=== PATIENT | male | born 2000 | race Caucasian/White ===

== ENCOUNTER 2019-04-01 15:58 | Emergency (ER) | payer OTHER ==
[2019-04-01 16:15] VITALS: BP 139/85
--- NOTE | 2019-04-01 16:44 | UC ---
Complaint Male HPI - HPI Summary HPI Summary: 19 yo male with dysuria Monday after masturbating. His urine looked cloudy once no urethral d/c ? mild testicular discomfort has had sex once in past year (2 months ago) no f/c no back pain no n/v/d - History of Current Complaint Chief Complaint: UCGU Stated Complaint: POSS UTI Time Seen by Provider: 04/01/19 16:12 Hx Obtained From: Patient Onset/Duration: Gradual Onset Timing: Intermittent, Lasting Seconds Severity Initially: Mild Severity Currently: Mild Pain Intensity: 2 Pain Scale Used: 0-10 Numeric Location: Penis Character: Burning Aggravating Factor(s): Voiding Alleviating Factor(s): Nothing Associated Signs And Symptoms: Positive: Dysuria - x1. Negative: Diaphoresis, Back Pain, Fever, Hematuria, Constipation, Blood in Stool, Rectal Pain, Appetite , Nausea, Vomiting(# Of Episodes =), Penile Swelling, Penile Discharge Prior STD Hx: none - Allergies/Home Medications Allergies/Adverse Reactions: Allergies Allergy/AdvReac Type Severity Reaction Status Date / Time No Known Allergies Allergy Verified 04/01/19 16:15 Home Medications: Home Medications Adalimumab [Humira(Cf) Pen] 40 mg INJ SEE INSTRUCTIONS 04/01/19 [History Confirmed 04/01/19] Budesonide/Formote 80/4.5(NF) [Symbicort 80/4.5 (NF)] 2 puff INH DAILY 04/01/19 [History Confirmed 04/01/19] Thrush Med 1 mg PO DAILY 04/01/19 [History Confirmed 04/01/19] PMH/Surg Hx/FS Hx/Imm Hx Previously Healthy: Yes - Surgical History Surgical History: None - Family History Known Family History: Positive: Hypertension - Social History Alcohol Use: Rare Substance Use Type: None Smoking Status (MU): Never Smoked Tobacco Review of Systems All Other Systems Reviewed And Are Negative: Yes Constitutional: Positive: Negative Skin: Positive: Negative Eyes: Positive: Negative ENT: Positive: Negative Respiratory: Positive: Negative Cardiovascular: Positive: Negative Gastrointestinal: Positive: Negative Genitourinary: Positive: Dysuria Motor: Positive: Negative Neurovascular: Positive: Negative Musculoskeletal: Positive: Negative Neurological: Positive: Negative Psychological: Positive: Negative Physical Exam Triage Information Reviewed: Yes Appearance: Well-Appearing, No Pain Distress, Well-Nourished Vital Signs: Initial Vital Signs Temp 100 F 11/11/19 16:06 Pulse 70 04/01/19 16:06 Resp 18 04/01/19 16:06 BP 139/85 04/01/19 16:06 Pulse Ox 100 04/01/19 16:06 Vital Signs Reviewed: Yes Eyes: Positive: Conjunctiva Clear ENT: Positive: Hearing grossly normal, Pharynx normal, Uvula midline. Negative : Nasal congestion, Nasal drainage, Tonsillar exudate, Trismus, Muffled voice, Hoarse voice Dental Exam: Normal Neck: Positive: Supple, Nontender, No Lymphadenopathy Respiratory: Positive: Lungs clear, Normal breath sounds, No respiratory distress, No accessory muscle use Cardiovascular: Positive: RRR, No Murmur Abdomen Description: Positive: Nontender, Soft Bowel Sounds: Positive: Present Male Genital Exam: Positive: Normal Genitalia, Other - uncirc. Negative: Lesions, Testicular Tenderness (R), Testicular Tenderness (L), Urethral Discharge Musculoskeletal: Positive: ROM Intact, No Edema Neurological: Positive: Alert Psychological Exam: Normal Skin Exam: Normal Diagnostics - Laboratory Lab Results: urine neg for leuks Complaint Male Course/Dx - Differential Dx/Diagnosis Provider Diagnosis: Urethritis Discharge ED - Sign-Out/Discharge Documenting (check all that apply): Patient Departure All imaging exams completed and their final reports reviewed: No Studies - Discharge Plan Condition: Stable Disposition: HOME Prescriptions: DOXYcycline CAP(*) [DOXYcycline 100MG CAP(*)] 100 mg PO BID #14 cap Patient Education Materials: Nonspecific Urethritis in Men (ED) Referrals: Jax Berg MD [Primary Care Provider] - If Needed Additional Instructions: your urine here was clear take doxy with food recheck in 4 days if not better tests for gonorrhea and chlamydia are pending - Billing Disposition and Condition Condition: STABLE Disposition: Home
[2019-04-02 12:59] LABS: Chlamydia trachomatis NAA Negative (Negative); Neisseria gonorrhoeae (GC) NAA Negative (Negative)
== END 2019-04-01 16:55 | disposition home or self-care (01) ==
LOC: UCEAST 15:58
DX: N34.2 Other urethritis (principal)
CPT/HCPCS: 81003; 87491; 87591; 99202; G0463

== ENCOUNTER 2019-04-13 15:29 | Emergency (ER) | payer OTHER ==
--- NOTE | 2019-04-13 15:30 | UC ---
Complaint Male HPI - HPI Summary HPI Summary: 19 yo male presents with burning with urination. He was seen here on 04/01/19 for urinary symptoms and UA was negative and GC/C was negative as well. He was treated with doxycycline for 7 days for urethritis. He saw a Urologist on and was told to take advil. He recalls that they asked him if he has noticed a weak stream or sensations of not having emptied his bladder - and at the time he denied these symptoms, but since that time he tells me he feels that he is having bladder pressure and has a weak urine stream. He called Urology today to f/u, but they were closed. He denies hematuria, sexual activity in <3months, testicular pain, abdominal pain, n/v, or flank pain. He tells me that at Urology he had a bladder ultrasound that was normal. - History of Current Complaint Stated Complaint: PERSONAL Time Seen by Provider: 04/13/19 15:29 Hx Obtained From: Patient Onset/Duration: Sudden Onset Severity Initially: Mild Severity Currently: Mild - Allergies/Home Medications Allergies/Adverse Reactions: Allergies Allergy/AdvReac Type Severity Reaction Status Date / Time No Known Allergies Allergy Verified 04/13/19 15:39 Home Medications: Home Medications Naproxen Sodium [Aleve] 220 mg PO ONCE PRN 04/13/19 [History Confirmed 04/13/19] PMH/Surg Hx/FS Hx/Imm Hx Respiratory History: Asthma - Surgical History Surgical History: None - Family History Known Family History: Positive: Hypertension - Social History Occupation: Student Lives: Dormitory/Roommates Alcohol Use: Rare Substance Use Type: None Smoking Status (MU): Never Smoked Tobacco Review of Systems All Other Systems Reviewed And Are Negative: No Constitutional: Positive: Negative Skin: Positive: Negative Respiratory: Positive: Negative Cardiovascular: Positive: Negative Gastrointestinal: Positive: Negative Genitourinary: Positive: Dysuria Neurological: Positive: Negative Psychological: Positive: Negative Physical Exam - Summary Physical Exam Summary: GENERAL: NAD. WDWN. No pain distress. SKIN: No rashes, sores, lesions, or open wounds. NECK: Supple. Nontender. No lymphadenopathy. CHEST: CTAB. No r/r/w. No accessory muscle use. Breathing comfortably and in no distress. CV: RRR. Pulses intact. Cap refill <2seconds ABDOMEN: Soft. NTTP. No distention or guarding. No organomegaly. No CVA tenderness. Bowel sounds present NEURO: Alert. PSYCH: Age appropriate behavior. Triage Information Reviewed: Yes Vital Signs: Vital Signs: Temp Pulse Resp BP Pulse Ox 98.4 F 78 16 146/88 99 04/13/19 15:36 04/13/19 15:36 04/13/19 15:36 04/13/19 15:36 04/13/19 15:36 Laboratory Tests 04/13/19 16:01 POC Urine Color Yellow POC Urine Clarity Clear POC Urine pH 7.0 POC Ur Specif [place] 1.010 POC Urine Protein Negative POC Ur Glucose (UA) Negative POC Urine Ketones Negative POC Urine Blood Negative POC Urine Nitrite Negative POC Urine Bilirubin Negative POC Urine Urobilinogen 0.2 POC U Leukocyte Esteras Negative Vital Signs Reviewed: Yes Male Genital Exam: Positive: Normal Genitalia, No Hernia. Negative: Epididymal Tenderness, Erythema, Inguinal Tenderness, Lesions, Scrotum Tenderness (R), Scrotum Tenderness (L), Testicular Tenderness (R), Testicular Tenderness (L), Urethral Discharge Complaint Male Course/Dx - Course Course Of Treatment: Pt was able to produce a large urine sample in the clinic without difficulty. UA negative. Exam normal. Will send for another GC/C. I am unsure the cause of his bladder symptoms, but he is currently seeing Urology - therefore will have him f/u with his Urologist next week for a recheck. - Differential Dx/Diagnosis Provider Diagnosis: Dysuria Discharge ED - Sign-Out/Discharge Documenting (check all that apply): Patient Departure All imaging exams completed and their final reports reviewed: No Studies - Discharge Plan Condition: Stable Disposition: HOME Patient Education Materials: Urinary Retention in Men (ED) Referrals: Jax Berg MD [Medical Doctor] - Additional Instructions: If you develop a fever, shortness of breath, chest pain, new or worsening symptoms - please call your PCP or go to the ED immediately. Your urine testing was normal today. I am unsure the cause of your continued urinary discomfort, but your exam today seemed normal and is reassuring. I recommend that you follow up with Urology this week for a recheck - Billing Disposition and Condition Condition: STABLE Disposition: Home
[2019-04-13 15:39] VITALS: BP 146/88
[2019-04-15 13:51] LABS: Chlamydia trachomatis NAA Negative (Negative); Neisseria gonorrhoeae (GC) NAA Negative (Negative)
== END 2019-04-13 16:13 | disposition home or self-care (01) ==
LOC: UCEAST 15:29
DX: R30.0 Dysuria (principal); J45.909 Unspecified asthma, uncomplicated
CPT/HCPCS: 81003; 87491; 87591; 99211; G0463